=== PATIENT | female | born 1995 ===

== ENCOUNTER 2016-11-24 11:51 | Emergency (ER) | payer BC ==
--- NOTE | 2016-12-01 15:15 | ER ---
ADMIT: 11/24/2016 RM/LOC: ER [facility] MR#: [id number] [facility] [address] [place] [id number] [address]ILLA CATES [address] [place] [address] Emergency Room Report SEX: F AGE: 21 : 1995 DATE: 11/24/2016 ADDENDUM: The patient comes to the ER because she has had constant vomiting all morning. She had recently turned 21 and had a republican where she drank Tequila, beer, and other liquor. She has never drank before and is not keeping anything down and constantly retching. On physical exam, she has diffuse abdominal tenderness. IV of normal saline was started. She was given a liter of bolus with Zofran. When I went to evaluate her, she was much improved. We will discharge her. I wrote a prescription for Zofran. She is to follow up with her primary. Please see my T-sheet. BRENTON Melendez / Vinod Torres MD / modl JOB #: [id number] CC: Vinod Torres MD, Attending Physician Luis Starr MD, Family Physician
== END 2016-11-24 14:40 | disposition home or self-care (01) ==
LOC: ER 11:51
DX: K29.20 Alcoholic gastritis without bleeding (principal)